=== PATIENT | female | born 1985 | race Caucasian/White ===

== ENCOUNTER 2019-11-22 12:07 | Emergency (ER) | payer OTHER ==
[~2019-11-22] VITALS: Ht 182.9 cm; Wt 122.5 kg
[~2019-11-22 12:07] MED LIST: BACTRIM DS TAB1 EACH PO; DULERA 200 MCG/13 GM INH; PROVENTIL HFA6.7 GM INH; ZOLOFT100 MG PO
--- OUTSIDE RECORDS SUMMARY | 2019-11-22 12:10 | XMS ---
PreManage Notification: SERENA PAYTON Security Teletype Clerk Events No recent Security Events currently on file CRITERIA MET - Group Notification CARE PROVIDERS There are no care providers on record at this time. Eugenia has no Care Guidelines for this patient. [facility] VISIT COUNT (12 MO.) 1 SUYZ [facility] TOTAL 1 NOTE: Visits indicate total known visits. ED/C VISIT TRACKING (12 MO.) 11/22/2019 12:08 SUZY [facility] [place] TYPE: Emergency COMPLAINT: - DIZZINESS, CHEST PAIN INPATIENT VISIT TRACKING (12 MO.) No inpatient visits to display in this time frame [email or web address]
[2019-11-22] MEDS ORDERED: BUSPIRONE HCL5 MG PO (12:27)
[2019-11-22] MEDS ORDERED: MUCINEX600 MG PO (12:27)
[2019-11-22] MEDS ORDERED: SINGULAIR10 MG PO (12:28)
[2019-11-22] MEDS ORDERED: CATAPRES0.1 MG PO (12:28)
[2019-11-22] MEDS ORDERED: SPIRIVA18 MCG INH (12:29)
[2019-11-22] MEDS ORDERED: OMEPRAZOLE40 MG PO (12:29)
--- NOTE | 2019-11-22 22:42 | EKG ---
[facility] [address] [facility] [place] [address] Signed Normal sinus rhythm Normal ECG No previous ECGs available Confirmed by FEI COLE MD ([id number]) on 11/22/2019 10:42:27 PM Electronically Signed By: FEI COLE MD 11/22/19 2242 PATIENT NAME: SERENA PAYTON Electrocardiogram DATE OF : 83 PHYSICIAN: FEI COLE MD REPORT #: [id number] REPORT IS CONFIDENTIAL AND NOT TO BE RELEASED WITHOUT AUTHORIZATION
== END 2019-11-22 14:00 | disposition home or self-care (01) ==
LOC: ED 12:07
DX: F41.9 Anxiety disorder, unspecified (principal); R07.9 Chest pain, unspecified; J45.909 Unspecified asthma, uncomplicated; Z88.8 Allergy status to other drugs, medicaments and biological substances; Z79.899 Other long term (current) drug therapy
CPT/HCPCS: 71045; 80053; 84443; 84484; 85025; 93005; 93010; 99285-25

== ENCOUNTER 2023-05-17 20:26 | Emergency (ER) | payer OTHER ==
[~2023-05-17] VITALS: Ht 182.9 cm; Wt 134.3 kg
[~2023-05-17 20:26] MED LIST changes: +BUSPIRONE HCL5 MG PO; +CATAPRES0.1 MG PO; +LEXAPRO20 MG PO; +MUCINEX600 MG PO; +OMEPRAZOLE40 MG PO; +SINGULAIR10 MG PO; +SPIRIVA18 MCG INH; +TOPAMAX100 MG PO
[2023-05-17 21:17] LABS: BASOPHILS 0.9 % (0-2); EOSINOPHILS 6.5 % (0-6); HEMOGLOBIN 13.8 g/dL (12.0-18.0); LYMPHOCYTES 17.4 % (24-44); MCH 30.2 (27-36); MCHC 33.6 g/dl (30-36); MCV 89.9 fl (81-99); NEUTROPHILS 68.2 % (39-80); PLATELET COUNT 199 K/uL (140-440); RBC 4.56 M/ul (4.3-5.7); RDW 14.5 (10.5-15.0)
[2023-05-17 21:19] LABS: BILIRUBIN, URINE NEGATIVE (negative); BLOOD/HGB, URINE NEGATIVE (Negative); KETONE, URINE TRACE (Negative); LEUK ESTERASE, URINE NEGATIVE (negative); NITRITE, URINE NEGATIVE (negative); PH, URINE 5.5 (5-7)
[2023-05-17 21:27] LABS: EPITHELIAL CELLS, URINE SQUAMOUS 1+ /lpf (0-1+); RED BLOOD CELLS, URINE 0-1 /hpf (0-5)
[2023-05-17 21:28] LABS: BACTERIA, URINE RARE /hpf (negative); CASTS, URINE HYALINE 1+ \\lpf; COLLECTION TYPE, URINE CLEAN CATCH; CRYSTALS, URINE NONE SEEN (0-1+); REFLEX CULTURE, URINE No (No)
[2023-05-17 21:32] LABS: ACETAMINOPHEN 0 ug/mL (10-30); ALBUMIN/GLOBULIN RATIO 0.75 (1.1-2.4); ALKALINE PHOSPHATASE 77 U/L (46-116); ALT (SGPT) 19 U/L (14-59); ANION GAP 14.8 (7-21); AST (SGOT) 11 U/L (15-37); BILIRUBIN, TOTAL 0.2 ng/dL (0.2-1.0); BUN/CREATININE RATIO 32.92 (6.0-28.6); CALCIUM 8.5 mg/dL (8.5-10.1); CARBON DIOXIDE 22 mmol/L (21-32); CHLORIDE 107 mmol/L (98-107); CREATININE, SERUM 0.82 mg/dL (0.55-1.02); GLOMERULAR FILTRATION RATE,EST 93 mL/min (>60); POTASSIUM 3.8 mmol/L (3.5-5.1); SALICYLATE 1.3 mg/dL (2.8-20.0); UREA NITROGEN 27 mg/dL (7-18)
[2023-05-17 21:33] LABS: AMPHETAMINES, URINE NEGATIVE (NEGATIVE); BARBITURATES, URINE NEGATIVE (NEGATIVE); BENZODIAZEPINE, URINE NEGATIVE (NEGATIVE); BUPRENORPHINE, URINE NEGATIVE (NEGATIVE); CANNABINOID, URINE NEGATIVE (NEGATIVE); COCAINE, URINE NEGATIVE (NEGATIVE); ECSTASY, URINE NEGATIVE (NEGATIVE); FENTANYL, URINE NEGATIVE (NEGATIVE); METHADONE, URINE NEGATIVE (NEGATIVE); OPIATES, URINE NEGATIVE (NEGATIVE); OXYCODONE, URINE NEGATIVE (NEGATIVE); PHENCYCLIDINE, URINE NEGATIVE (NEGATIVE)
[2023-05-17 23:51] VITALS: BP 145/83
--- NOTE | 2023-05-18 14:13 | EKG ---
[facility] [address] [facility] [place], [place] [address] Signed Normal sinus rhythm Normal ECG No previous ECGs available Confirmed by AMISH WILKERSON MD ([id number]) on 05/18/2023 2:13:41 PM Electronically Signed By: AMISH WILKERSON 05/18/23 1413 PATIENT NAME: SERENA PAYTON Electrocardiogram DATE OF : 83 PHYSICIAN: AMISH WILKERSON REPORT #: [id number] REPORT IS CONFIDENTIAL AND NOT TO BE RELEASED WITHOUT AUTHORIZATION
== END 2023-05-17 23:57 | disposition home or self-care (01) ==
LOC: ED 20:26
PROVIDERS: Internal Medicine
DX: R45.851 Suicidal ideations (principal); R45.87 Impulsiveness; F32.9 Major depressive disorder, single episode, unspecified; F41.9 Anxiety disorder, unspecified; F43.10 Post-traumatic stress disorder, unspecified; J45.909 Unspecified asthma, uncomplicated; Z88.8 Allergy status to other drugs, medicaments and biological substances; Z79.899 Other long term (current) drug therapy; Z79.51 Long term (current) use of inhaled steroids
CPT/HCPCS: 36415; 80053; 80307; 81001; 85025; 93005; 93010; 99285-25; G0480